=== PATIENT | female | born 2000 | race African-American/Black ===

== ENCOUNTER 2022-03-15 06:12 | Emergency (ER) | payer BC ==
[2022-03-15] MEDS ORDERED: Acetaminophen 500 MG TAB ONE (06:45)
== END 2022-03-15 08:13 | disposition home or self-care (01) ==
LOC: NAV ERS 06:12
DX: J10.1 Influenza due to other identified influenza virus with other respiratory manifestations (principal)
CPT/HCPCS: 87081; 87430; 87804; 99283